=== PATIENT | female | born 1945 | race Caucasian/White ===

== ENCOUNTER 2017-03-08 07:45 | Day surgery (SDC) | payer MEDICARE, OTHER ==
[~2017-03-08] VITALS: Ht 167.6 cm; Wt 74.8 kg
[2017-03-08] VITALS (17 sets, daily range): BP systolic 124–162; BP diastolic 57–90; PULSE 67–106; RESP 14–20; O2SAT 94–99
[~2017-03-08 07:45] MED LIST: HYDR-3090 PO; L-thyroxine PO; Lactated Ringer's 1,000 ML IV SCH
[2017-03-08] MEDS ORDERED: Rocuronium 10 mg/mL 5 mL Inj ONE (07:46)
[2017-03-08] MEDS ORDERED: HYDROmorphone 1 mg/mL Inj ONE (07:46)
[2017-03-08] MEDS ORDERED: Propofol 10,000 mCg/mL 20 mL Inj ONE (07:46)
[2017-03-08] MEDS ORDERED: Ondansetron 2 mg/mL 2 mL Inj ONE (07:46)
[2017-03-08] MEDS ORDERED: MetoCLOpramide 5 mg/mL 2 mL Inj ONE (07:46)
[2017-03-08] MEDS ORDERED: Succinylcholine Chloride 20 mg/mL 5 mL Inj ONE (07:46)
[2017-03-08] MEDS ORDERED: fentaNYL-PF 50 mCg/mL 2 mL Inj ONE (07:46)
[2017-03-08] MEDS ORDERED: Dexamethasone 4 mg/mL Inj ONE (07:46)
[2017-03-08] MEDS ORDERED: Lactated Ringer's 1,000 ML IV ONE ×2 (08:04→14:21)
--- NOTE | 2017-03-08 09:32 | DRSVH ---
PROCEDURE: NM SENTINEL NODE INJECTION ONLY, LEFT BREAST RADIOPHARMACEUTICAL: 0.5 mCi Millipore filtered Tc-99m sulfur colloid. INDICATIONS: LEFT BREAST CANCER PROCEDURE: The indications, alternatives, benefits, risks, and complications of the procedure were explained to the patient. Written informed consent was obtained and placed in the chart. The area around the nip ple was prepped and draped in a sterile fashion. Tc-99m sulfur colloid was injected in the outer edg e of the areola in the left breast. No image was obtained. IMPRESSION: Administration of radiotracer into the left breast periareolar region for intra-operativ e sentinel lymph node localization. Dictated by: Akhil Nance M.D. on 03/08/2017 at 9:29 Approved by: Akhil Nance M.D. on 03/08/2017 at 9:30
--- NOTE | 2017-03-08 10:45 | PCM.HPANE ---
Patient Data Date of Service: Mar 08, 2017 Surgeon Admitting Provider: Attending Provider:Joseph Hooks MD Primary Care Physician:Milton Other Provider:Ara Griffin Anesthesia Reason for Visit Left Breast Cancer Ht/WT & BMI Height (Feet): 5 Height (Inches): 6.00 Weight (Kilograms): 74.842 Body Mass Index 26.00 Allergies Uncoded Allergies: NKDA (Allergy, Unknown, 02/19/17) Past Anesthesia History Anesthesia History: Denies:: Anesthesia Reactions, Fam Anesthesia Reaction, Fam Malignant Hypertherm, Malignant Hyperthermia Diabetes History Hx Diabetes?: No MRSA MRSA: No Medications Home Meds Incl Beta Hipolito: No Reported Medications Hydrocodone-Acetaminophen 5-300 mg 1 Each Tablet1 Tablet PO Q4H PRN For Pain Ref 0 5-500 03/02/17 [L-thyroxine] No Conflict [id number] Mcg PO DAILY 02/19/17 History History of ENT Problems?: Yes HEENT History: Denies:: Abnormal Airway Cataracts Difficult Intubation Dysphagia Glaucoma Hearing Problem Sinus Problem TMJ Denture Type: None Teeth Condition: Within Normal Limits Other HEENT Pertinent History: S/P TONSILLECTOMY Hx of Heart Problems?: No Cardiovascular History: Denies:: Chest Pain Heart Murmur Hypertension Hx of Respiratory Problem?: No Respiratory History: Denies:: Use of C-PAP Machine Hx Neurologic Problems?: No Neurological History: Denies:: CVA Seizures TIA Hx of GI Problems?: No Gastrointestinal History: Denies:: Gastroesphageal Reflux Hx of Problems?: No HX of Peritoneal Dialysis: No Female Hx: Positive for:: Problems with Breasts? (S/P LT BREAST BX LT BREAST CA=CURRENT PROBLEM) Denies:: Currently Skin History: Denies:: History Skin Disorders? Pressure Ulcers Hx Musculoskeletal Problems?: Yes Musculoskeletal History: Positive for:: Musculoskeletal Trauma (RECENT FALL W / RT RIB INJURY) Hx of Psycho/Social Problems?: No Hx Surgeries?: Yes (THYROIDECTOMY W/ IODINE ABLATION,TONSILLECTOMY) Hx Any Other Health Problems?: Yes Other History: Positive for:: Cancer (thyroid 2004) Thyroid Disease (S/P THYROIDECTOMY W. IODINE ABLATION FOR CA) Denies:: Endocrine Disease Hospitalization History Blood Transfusions: Positive for:: Accept Blood Products? Hx Diabetes: No Hx Substance Use: No Smoking Status: Never Smoker Have You Smoked inLast 12 mo: No Stop/Bang Treated for Sleep Apnea?: No Do You Have a CPAP Machine?: No S-Snoring: Do You Snore Loudly: No T-Tired: feel tired, fatigued: No O-Obsered: Observed not breath: No P-Blood Pressure: treated: No B- Body Mass Index > 35 kg/m2: No A- Age over 50: Yes N- Neck Large Circumference: No G- Gender Male: No MARGO Total Score: 1 MARGO Risk Assessment: Low Risk, <3 Yes Risk Assessment Category Category 1A: Patient has history of documented sleep apnea, and HAS NOT received any narcotic, sedative or anesthesia administration during this stay. Category 1B: Patient has history of documented sleep apnea, and HAS received any narcotic , sedative or anesthesia administration during this stay Category 2: Patient has SUSPECTED Obstructive Sleep Apnea, and HAS received any narcotic , sedative or anesthesia administration during this stay. Category 3: Patient has SUSPECTED Obstructive Sleep Apnea and HAS NOT received narcotic, sedative or anesthesia administration during this stay. Category 4: Outpatient in Procedural Areas with known sleep apnea or who screen positive for High Risk via the STOP/BANG questionnaire. Exam Exam Vital Signs Vital Signs Date Time Temp Pulse Resp B/P Pulse Ox O2 Delivery O2 Flow Rate FiO2 03/08/17 08:05 36.4 67 17 145/90 97 Room Air General Appearance: Alert, Oriented X3, Cooperative, No Acute Distress HEENT/AIRWAY: MP 3, Neck Movement (from), Mouth Opening (3), Other (tmd3, overbite .75cm) Lungs: Normal Air Movement Heart: Exam Unremarkable, Regular Rate/Rhythm, Normal S1, Normal S2, No Murmurs /Rubs/Gallops Meds/Labs/Diagnostics Admission Meds Current Medications Lactated Ringer's (Lr) 1,000 ml @ ud STK-MED ONCE IV Last administered on 03/08t 08:04; Start 03/08/17 at 08:04; Stop 03/08/17 at 08:05; Status DC Plan Impression Patient chart reviewed, patient interviewed and anesthestic plan with risks, benefits, and alternatives discussed, and informed consent obtained. ASA Physical Status: ASA2 Mod Systemic Disease Anesthetic Plan: GA Bene/Risks/Altern/Consents: Yes HP Complete Prior to Induction: Yes Vic Prather MD Mar 08, 2017 10:45
[2017-03-08] MEDS ORDERED: Bupivacaine-MPF 0.5% W/EPI 30 mL Inj INFILTRATE ONE (12:50)
[2017-03-08] MEDS ORDERED: HepLOK Flush 100 unit/mL 5 mL Inj IVFLUSH ONE (12:51)
[2017-03-08] MEDS ORDERED: Lactated Ringer's 1,000 ML IV SCH (13:28)
[2017-03-08] MEDS ORDERED: Lactated Ringer's 500 ML IV PRN (13:28)
[2017-03-08] MEDS ORDERED: EPHEDrine Sulfate 50 mg/mL Inj IVPUSH PRN (13:30)
[2017-03-08] MEDS ORDERED: Dexamethasone 4 mg/mL Inj IVPUSH PRN (13:30)
[2017-03-08] MEDS ORDERED: Ondansetron 2 mg/mL 2 mL Inj IVPUSH PRN (13:30)
[2017-03-08] MEDS ORDERED: MetoCLOpramide 5 mg/mL 2 mL Inj IVPUSH PRN (13:30)
[2017-03-08] MEDS ORDERED: HYDROmorphone 1 mg/mL Inj IVPUSH PRN (13:30)
[2017-03-08] MEDS ORDERED: Phenylephrine 10,000 mCg/mL Inj IVPUSH PRN (13:30)
[2017-03-08] MEDS ORDERED: HYDROcodone-APAP 5-325 mg Tablet PO PRN (14:40)
[2017-03-08] MEDS ORDERED: Ketorolac 15 mg/mL Inj IVPUSH PRN (14:40)
--- NOTE | 2017-03-08 14:44 | PCM.DISURG ---
Surgical Discharge Instruction Date of Service Mar 08, 2017 Dates of Hospitalization Date of Hospital Admission Providers Admitting Physician: Primary Care Physician: Milton Attending Physician: Joseph Hooks MD Discharge Diagnosis Discharge Diagnosis Left breast cancer Diet Discharge Diet: No restrictions Activity Discharge Activity-General: Activity as pain allows Dressing and Incisional Care Dressing Care: Allow Steri Stripes to fall off, Remove outer dressing after 24 hrs Hygiene: May shower after (24 hours) Follow Up Plan Follow Up Plan With Dr. Hooks in surgery clinic in 7-10 days Call your provider for: Fever (over 101.5), Discharge @ incision, pus discharge Joseph Hooks MD Mar 08, 2017 14:44
--- NOTE | 2017-03-08 14:54 | PCM.SURGOP ---
Surgical Operative Report Date of Service: Mar 08, 2017 Pre Operative Diagnosis Left breast cancer Post Operative Diagnosis Same Procedure: Left partial mastectomy, left axillary sentinel lymph node biopsy, local tissue rearrangement less than 60 cm, right internal jugular central venous catheter with power port, intraoperative ultrasound guidance, intraoperative fluoroscopy with interpretation Surgeon and Intrusion Analyst: Surgeon: Joseph Hooks MD Assistants: Faisal Sahu PA-C Indication for Procedure 71-year-old woman who developed a palpable left breast mass. Her imaging workup showed a 2.0 cm mass in the 12 to 1 o'clock position of the left breast middle depth. Her biopsy showed invasive ductal carcinoma, triple negative. After discussion of risks and benefits, she agreed to proceed with partial mastectomy, left axillary sentinel lymph node biopsy, Port-A-Cath placement. Findings: Her primary radiotracer drainage seemed to go to the internal mammary chain, but there was some minimal uptake in the left axilla. Methylene blue was used, and a single blue lymph node was found in the left axilla. Procedure Details Preoperatively, the patient underwent left breast radiotracer injection for sentinel node identification. She was then brought to the operating room where she underwent smooth induction of general endotracheal anesthesia. Evaluation of the left axilla for radiotracer uptake showed very minimal uptake in the left axilla, but surprisingly, a strong radiotracer signal along both sides of the sternum, consistent with primary lymphatic drainage to the internal mammary chains. Methylene blue was injected around the areolar border, and the breast was massaged for several minutes. She was placed in the supine position with the right arm tucked, and was prepped and draped in wide sterile fashion. A procedural pause was performed according to the SCOAP checklist, and all were found to be in agreement. The right internal jugular vein was assessed with ultrasound, and found to be patent and compressible. She was placed in Trendelenburg position. Using ultrasound guidance, the right internal jugular vein was accessed with a finder needle in a single pass. The 0.018 inch wire was passed through the needle, and confirmed with fluoroscopy to be in the inferior vena cava. The micro- sheath was passed over the wire. The wire was removed, and the 0.035 inch wire was passed through the micro-sheath into the inferior vena cava, confirmed with fluoroscopy. The right chest was anesthetized with local anesthetic. A transverse incision was made, and the subcutaneous pocket was created. The port reservoir was sutured to the subcutaneous pocket with 3-0 Vicryl sutures. The tear-away sheath and dilator was passed over the wire into the vena cava, under fluoroscopic guidance. The catheter was then tunneled through the subcutaneous space to the right neck venipuncture site. The catheter was passed through the tear-away sheath and positioned at the cavoatrial junction. The tear-away sheath was removed. The catheter was cut to size, and connected to the port reservoir. The port flushed and aspirated easily. A final fluoroscopic view of the catheter was obtained with the patient flat. The port was flushed with a final heparin flush, 100 units per mL. The subcutaneous pocket and venipuncture site in the neck were closed with running 4-0 Monocryl subcuticular stitches. An upper outer quadrant left breast radial ellipse incision was made from the areolar border. Skin flaps were raised. Circumferential dissection was then carried out with electrocautery around the palpable mass. The posterior aspect of dissection was the chest wall, but pectoralis fascia was not resected. Medially, dissection was just underneath the areola. The palpable mass was dissected free, and oriented with suture. An intraoperative consultation was obtained from Dr. Andrew Clarke from [facility]. Gross evaluation of the specimen including orienting and inking, revealed that the anterior and possibly lateral margins could have been close. The initial specimen was sent for permanent pathology, labeled as left breast tissue, upper outer quadrant. Additional shave margins were then obtained from the left anterosuperior margin , which was oriented with suture, and sent for permanent pathology. The left lateral shave margin was obtained, oriented with suture, and sent for permanent pathology. The lumpectomy cavity was marked with hemoclips circumferentially. Breast parenchymal flaps were then elevated off the underlying chest wall, which measured 5 x 5 cm superiorly and inferiorly. The breast parenchyma was reapproximated with a series of interrupted 3-0 Vicryl sutures, both deep and superficially. A curvilinear incision was made at the inferior border of the hairbearing skin in the left axilla. Dissection was carried through the subcutaneous tissue until the axillary fascia was incised. Evaluation of the true axilla with the gamma probe revealed a diffuse weak radiotracer signal, and no discrete hot area of uptake. In the inferior axilla, a single lymph node was found which had some mottled blue dye uptake, which was consistent with a sentinel node. This was dissected free from the surrounding tissue. Ex vivo, and had no gamma count. There was minimal background count in the left axilla. There was no pathologically abnormal lymph nodes by palpation. The left axillary node was sent for permanent pathology. The axillary fascia was closed with a single interrupted 3-0 Vicryl suture. Both the breast and axillary skin incisions were closed with running 4-0 Vicryl subcuticular suture. Steri-Strips and sterile dressings were applied to all the surgical sites. At the end of the case all needle and sponge counts were correct 2. The patient was awakened from anesthesia without difficulty, and taken to the recovery room in satisfactory condition, having tolerated the procedure well. Complications There were no periprocedural complications identified. Surgical Specimen Removed: Yes Specimen sent to Pathology: Yes Surgical Specimen description: Left breast tissue, upper outer quadrant. Left breast anterosuperior margin. Left breast lateral margin. Left axillary sentinel lymph node. Anesthetic Plan: GA Grafts, Implants: Implants-See Implant Record Output, Estimated Blood Loss: 50 Blood Administration during bess: No Drains: None Catheters: None copies to: Vic Hutton MD; Andrey Styles DO; Kenrick Rosenthal MD, Joshua D MD Mar 08, 2017 14:54
[2017-03-08] MEDS: fentaNYL-PF 50 mCg/mL 2 mL Inj IVPUSH PRN ×4 (15:17→16:00)
[2017-03-08] MEDS ORDERED: PHYSOSTIGMINE SALICYLATE IV PRN (15:30)
[2017-03-08] MEDS ORDERED: Atropine 0.4 mg/mL Inj IVPUSH PRN (15:30)
[2017-03-08] MEDS ORDERED: Glycopyrrolate 0.2 MG/ML 1mL Inj ONE (15:36)
[2017-03-08] MEDS ORDERED: Atropine 1 mg/10 mL (Code) Syringe ONE (15:44)
[2017-03-08] MEDS ORDERED: hydrOXYzine Inj 50 MG/1 mL SDV IM ONE ×2 (15:58→16:00)
[2017-03-08] MEDS ORDERED: EPHEDrine Sulfate 50 mg/mL Inj ONE (15:59)
[2017-03-08] MEDS ORDERED: EPHEDrine Sulfate 50 mg/mL Inj IM PRN (16:00)
--- NOTE | 2017-03-08 17:37 | PCM.ANEP1 ---
Post Anesthesia PACU Phase 1 Assessment Date of Service: Mar 08, 2017 Vital Signs Vital Signs Date Time Temp Pulse Resp B/P Pulse Ox O2 Delivery O2 Flow Rate FiO2 03/08/17 17:20 95 14 95 Nasal Cannula 1 03/08/17 17:00 36.5 95 14 124/69 96 Nasal Cannula 3 03/08/17 16:45 36.7 89 18 131/66 98 Nasal Cannula 3 03/08/17 16:30 91 18 146/77 96 Nasal Cannula 3 03/08/17 16:15 90 127/57 95 Nasal Cannula 3 03/08/17 16:00 98 146/76 03/08/17 15:45 84 16 125/58 96 Simple Mask 7 03/08/17 15:30 89 18 127/60 99 Simple Mask 7 03/08/17 15:15 106 18 126/64 96 Simple Mask 7 03/08/17 15:00 36.3 83 17 135/68 96 Simple Mask 7 03/08/17 14:55 84 19 143/71 96 Simple Mask 6 03/08/17 14:50 86 17 137/77 95 Simple Mask 6 03/08/17 14:45 96 20 147/72 95 Simple Mask 6 03/08/17 14:41 36.3 162/83 Anesthetic Administered: GA Level of Alertness: Awake, talking BROWN's with Equal Strength: Yes Pain: No Pain Scale Score: 0 Nausea or Vomiting: Yes (AFTER ADMINISTRATION OF PHYSOSTIGMINE) CV Function & Hydration Stable: Yes Airway Device: NONE IN PACU Oxygen Delivery: Nasal Cannula Lungs: Normal Air Movement Summary 03/08/17 17:20 95 14 95 Nasal Cannula 1 PACU Phase 2 Assessment Complications: No Follow up Care: N/A Patient Instructions Provided: N/A Vic Prather MD Mar 08, 2017 17:37
== END 2017-03-08 23:59 | disposition home or self-care (01) ==
LOC: SAS 07:45
PROVIDERS: ATTEND Student in an Organized Health Care Education/Training Program
DX: C50.412 Malignant neoplasm of upper-outer quadrant of left female breast (principal); C77.3 Secondary and unspecified malignant neoplasm of axilla and upper limb lymph nodes; Z17.0 Estrogen receptor positive status [ER+]; E03.9 Hypothyroidism, unspecified; Z85.850 Personal history of malignant neoplasm of thyroid
CPT/HCPCS: 19301; 36561; 38525; 38792; 77001; A9541; C1788; C1894; J0330; J0690; J1100; J1170; J1642; J1885; J2250; J2405; J2765; J3010; J3410; J7120